=== PATIENT | female | born 1980 | race Caucasian/White ===

== ENCOUNTER 2018-06-03 19:23 | Emergency (ER) | payer SELFPAY ==
[2018-06-03] MEDS ORDERED: Ondansetron ODT 4 MG TAB ONE (19:38)
== END 2018-06-03 19:50 | disposition home or self-care (01) ==
LOC: BURERS 19:23
DX: R42 Dizziness and giddiness (principal); T40.4X5A Adverse effect of other synthetic narcotics, initial encounter
CPT/HCPCS: 99283; Q0162

== ENCOUNTER 2018-11-05 16:19 | Emergency (ER) | payer BC, SELFPAY ==
[2018-11-05 16:48] LABS: Bilirubin Negative (Negative); Blood, Urine Large (Negative); Clarity Turbid (Clear); Glucose, Urine (Dipstick) Negative (Negative); Leukocyte Moderate (Negative); Nitrite Negative (Negative); Protein, Urine (Dipstick) 30 mg/dL (Neg-Trace); Specific Gravity, Urine 1.021 (1.005-1.030); Urobilinogen 0.2 mg/dL (0.2-1.0); pH, Urine 5.5 (5.0-9.0)
[2018-11-05 16:49] LABS: Bacteria/HPF 3+ HPF (None Seen); Pregnancy Test - Urine (BHCG) Negative (Negative); Pregu Control Background? CLEAR/WHITE (CLR/WHITE); Pregu Control Bar Appear? YES (CONTROL BAR); RBC/HPF GREATER THAN 50-TNTC HPF (0-3); Specific Gravity 1.021 (1.002-1.036); Squamous Epithelial 0-3 HPF (0-3)
== END 2018-11-05 16:56 | disposition home or self-care (01) ==
LOC: BURERS 16:19
DX: N39.0 Urinary tract infection, site not specified (principal)
CPT/HCPCS: 81003; 81015; 81025; 99283